=== PATIENT | male | born 1940 | race Two or more races ===

== ENCOUNTER → 2019-11-01 | Outpatient (CLI) | payer OTHER ==
[2019-11-01 08:58] LABS: Basophils # (auto) 0 uL; Basophils % (auto) 0.6 % (0.0-2.0); Eosinophils # (auto) 0.1 uL; Eosinophils % (auto) 2.6 % (0.0-7.0); Hematocrit 42.9 % (41.0-53.0); Hemoglobin 14.4 g/dL (13.5-17.5); Lymphocytes % (auto) 41.5 % (10.0-50.0); Mean Corpuscular Hemoglobin 31.6 pg (28.0-32.0); Mean Corpuscular Hgb Conc. 33.6 g/dL (32.0-36.0); Mean Corpuscular Volume 93.8 fL (80.0-100.0); Monocytes # (auto) 0.4 uL; Neutrophils # (auto) 2.2 uL; Neutrophils % (auto) 47.3 % (37.0-80.0); Platelet Count (auto) 136 10^3/uL (140-450); Red Blood Cells 4.57 10^6/uL (4.5-5.90); Red Cell Distribution Width 13.3 % (11.8-14.3); White Blood Cell 4.7 10^3/uL (4.4-10.8)
[2019-11-01 09:06] LABS: Urine Bacteria NONE SEEN /hpf (None Seen); Urine Blood TRACE /uL (Negative); Urine Specific Gravity 1.018 (1.001-1.035); Urine WBC <1 /hpf (0 - 3)
[2019-11-01 09:14] LABS: Albumin 3.9 g/dL (3.4-5.0); Potassium 4.3 mmol/L (3.5-5.1)
[2019-11-01 09:22] LABS: BUN/Creatinine Ratio 23.3; Bilirubin, Total 0.4 mg/dL (0.2-1.0); Total Protein 7.7 g/dL (6.4-8.2)
[2019-11-01 09:29] LABS: Free T4 (Free Thyroxine) 1.04 ng/dL (0.89-1.76)
[2019-11-01 09:30] LABS: Prostate Specific Antigen 4.26 ng/mL (0.0-4.0)
== END | disposition home or self-care (01) ==
LOC: LAB 08:25
PROVIDERS: ATTEND Internal Medicine
DX: I10 Essential (primary) hypertension (principal); E78.00 Pure hypercholesterolemia, unspecified; N40.0 Benign prostatic hyperplasia without lower urinary tract symptoms
CPT/HCPCS: 36415; 80053; 80061; 81001; 84153; 84154; 84439; 84443; 85025; 85652

== ENCOUNTER → 2021-01-14 | Outpatient (CLI) | payer OTHER ==
[2021-01-14 07:45] LABS: Basophils # (auto) 0 10 ^3/uL (0-0.2); Basophils % (auto) 0.5 % (0.0-2.0); Eosinophils # (auto) 0.1 10 ^3/uL (0-0.8); Eosinophils % (auto) 2.5 % (0.0-7.0); Hematocrit 42.3 % (41.0-53.0); Hemoglobin 14.3 g/dL (13.5-17.5); Lymphocytes # (auto) 2.4 10 ^3/uL (0.4-5.4); Lymphocytes % (auto) 41.3 % (10.0-50.0); Mean Corpuscular Hemoglobin 31.2 pg (28.0-32.0); Mean Corpuscular Hgb Conc. 33.8 g/dL (32.0-36.0); Mean Corpuscular Volume 92.2 fL (80.0-100.0); Monocytes # (auto) 0.5 10 ^3/uL (0-1.3); Monocytes % (auto) 8.5 % (0.0-12.0); Neutrophils # (auto) 2.8 10 ^3/uL (1.6-8.6); Neutrophils % (auto) 47.2 % (37.0-80.0); Nucleated Red Blood Cells % 0.2 %; Platelet Count (auto) 150 10^3/uL (140-450); Red Blood Cells 4.58 10^6/uL (4.5-5.90); Red Cell Distribution Width 13.8 % (11.8-14.3); White Blood Cell 5.9 10^3/uL (4.4-10.8)
[2021-01-14 07:53] LABS: Urine Bacteria NONE SEEN /hpf (None Seen); Urine Blood 1+ /uL (Negative); Urine Mucus FEW (None Seen); Urine WBC 1 /hpf (0 - 3)
[2021-01-14 08:16] LABS: Albumin 3.7 g/dL (3.4-5.0); Calcium 8.6 mg/dL (8.5-10.1); Potassium 3.9 mmol/L (3.5-5.1)
[2021-01-14 08:22] LABS: BUN/Creatinine Ratio 28.2; Bilirubin, Total 0.5 mg/dL (0.2-1.0); Total Protein 7.5 g/dL (6.4-8.2)
[2021-01-14 08:43] LABS: Free T4 (Free Thyroxine) 1.11 ng/dL (0.89-1.76)
[2021-01-14 08:44] LABS: Prostate Specific Antigen 3.97 ng/mL (0.0-4.0)
== END | disposition home or self-care (01) ==
LOC: LAB 07:14
PROVIDERS: ATTEND Internal Medicine
DX: D69.3 Immune thrombocytopenic purpura (principal); R53.1 Weakness; I10 Essential (primary) hypertension
CPT/HCPCS: 36415; 80053; 80061; 81001; 82607; 83615; 84153; 84439; 84443; 85025; 85652

== ENCOUNTER → 2021-05-27 | Outpatient (CLI) | payer OTHER ==
[2021-05-27 11:47] LABS: Urine Bacteria NONE SEEN /hpf (None Seen); Urine Blood TRACE /uL (Negative); Urine Mucus FEW (None Seen); Urine Specific Gravity 1.021 (1.001-1.035); Urine WBC <1 /hpf (0 - 3)
[2021-05-27 11:57] LABS: Basophils # (auto) 0 10 ^3/uL (0-0.2); Basophils % (auto) 0.8 % (0.0-2.0); Eosinophils # (auto) 0.1 10 ^3/uL (0-0.8); Eosinophils % (auto) 2.7 % (0.0-7.0); Hematocrit 40.9 % (41.0-53.0); Hemoglobin 13.6 g/dL (13.5-17.5); Lymphocytes # (auto) 1.9 10 ^3/uL (0.4-5.4); Lymphocytes % (auto) 36.5 % (10.0-50.0); Mean Corpuscular Hemoglobin 31.3 pg (28.0-32.0); Mean Corpuscular Hgb Conc. 33.4 g/dL (32.0-36.0); Mean Corpuscular Volume 93.8 fL (80.0-100.0); Monocytes # (auto) 0.6 10 ^3/uL (0-1.3); Monocytes % (auto) 10.7 % (0.0-12.0); Neutrophils # (auto) 2.6 10 ^3/uL (1.6-8.6); Neutrophils % (auto) 49.3 % (37.0-80.0); Red Blood Cells 4.36 10^6/uL (4.5-5.90); Red Cell Distribution Width 13.2 % (11.8-14.3); White Blood Cell 5.2 10^3/uL (4.4-10.8)
[2021-05-27 12:34] LABS: Albumin 3.6 g/dL (3.4-5.0); Calcium 8.5 mg/dL (8.5-10.1); Potassium 4.1 mmol/L (3.5-5.1)
[2021-05-27 12:38] LABS: BUN/Creatinine Ratio 23.8; Bilirubin, Total 0.4 mg/dL (0.2-1.0); Total Protein 7.3 g/dL (6.4-8.2)
== END | disposition home or self-care (01) ==
LOC: LAB 11:27
PROVIDERS: ATTEND Internal Medicine
DX: I10 Essential (primary) hypertension (principal); L03.114 Cellulitis of left upper limb
CPT/HCPCS: 36415; 80053; 81001; 85025; 85652

== ENCOUNTER → 2022-01-17 | Outpatient (CLI) | payer OTHER ==
[2022-01-17 08:37] LABS: Basophils # (auto) 0.1 10 ^3/uL (0-0.2); Basophils % (auto) 0.7 % (0.0-2.0); Eosinophils # (auto) 0.1 10 ^3/uL (0-0.8); Eosinophils % (auto) 1.6 % (0.0-7.0); Hematocrit 39.7 % (41.0-53.0); Hemoglobin 13.7 g/dL (13.5-17.5); Lymphocytes # (auto) 2.7 10 ^3/uL (0.4-5.4); Lymphocytes % (auto) 35.6 % (10.0-50.0); Mean Corpuscular Hemoglobin 32.2 pg (28.0-32.0); Mean Corpuscular Hgb Conc. 34.5 g/dL (32.0-36.0); Mean Corpuscular Volume 93.3 fL (80.0-100.0); Monocytes # (auto) 0.6 10 ^3/uL (0-1.3); Monocytes % (auto) 7.7 % (0.0-12.0); Neutrophils # (auto) 4.2 10 ^3/uL (1.6-8.6); Neutrophils % (auto) 54.4 % (37.0-80.0); Nucleated Red Blood Cells % 0.1 %; Red Blood Cells 4.25 10^6/uL (4.5-5.90); Red Cell Distribution Width 14.6 % (11.8-14.3); White Blood Cell 7.7 10^3/uL (4.4-10.8)
[2022-01-17 08:59] LABS: Potassium 3.8 mmol/L (3.5-5.1)
[2022-01-17 09:06] LABS: Albumin 3.2 g/dL (3.4-5.0); BUN/Creatinine Ratio 29.5; Bilirubin, Total 0.4 mg/dL (0.2-1.0); Calcium 8.4 mg/dL (8.5-10.1); Total Protein 6.7 g/dL (6.4-8.2)
== END | disposition home or self-care (01) ==
LOC: LAB 08:22
PROVIDERS: ATTEND Internal Medicine
DX: E78.5 Hyperlipidemia, unspecified (principal); I10 Essential (primary) hypertension
CPT/HCPCS: 36415; 80053; 85025

== ENCOUNTER → 2022-05-05 | Outpatient (CLI) | payer OTHER | END | disposition home or self-care (01) | LOC: LAB 12:09 | PROVIDERS: ATTEND Urology | DX: R35.1 Nocturia (principal) | CPT/HCPCS: 84153 ==

== ENCOUNTER → 2023-01-17 | Outpatient (CLI) | payer OTHER ==
[2023-01-17 12:40] LABS: Urine Bacteria NONE SEEN /hpf (None Seen); Urine Blood TRACE /uL (Negative); Urine Mucus FEW (None Seen); Urine Specific Gravity 1.032 (1.001-1.035); Urine WBC 164 /hpf (0 - 3); Urine WBC Clumps PRESENT /hpf (None Seen)
== END | disposition home or self-care (01) ==
LOC: LAB 12:15
PROVIDERS: ATTEND Urology
DX: N39.0 Urinary tract infection, site not specified (principal)
CPT/HCPCS: 81001; 87086

== ENCOUNTER → 2023-03-24 | Outpatient (CLI) | payer OTHER ==
[2023-03-24 08:58] LABS: Basophils # (auto) 0 10 ^3/uL (0-0.2); Basophils % (auto) 0.4 % (0.0-2.0); Eosinophils # (auto) 0.2 10 ^3/uL (0-0.8); Eosinophils % (auto) 3.8 % (0.0-7.0); Hematocrit 42.1 % (41.0-53.0); Lymphocytes # (auto) 2.3 10 ^3/uL (0.4-5.4); Mean Corpuscular Hemoglobin 30.8 pg (28.0-32.0); Mean Corpuscular Hgb Conc. 33.1 g/dL (32.0-36.0); Monocytes # (auto) 0.5 10 ^3/uL (0-1.3); Monocytes % (auto) 8.8 % (0.0-12.0); Neutrophils # (auto) 2.8 10 ^3/uL (1.6-8.6); Red Blood Cells 4.53 10^6/uL (4.5-5.90); Red Cell Distribution Width 13.5 % (11.8-14.3); White Blood Cell 5.9 10^3/uL (4.4-10.8)
[2023-03-24 09:08] LABS: Urine Bacteria NONE SEEN /hpf (None Seen); Urine Blood 2+ /uL (Negative); Urine Hyaline Cast FEW /lpf (0 - 2); Urine Mucus MODERATE (None Seen); Urine WBC <1 /hpf (0 - 3)
[2023-03-24 09:23] LABS: Free T4 (Free Thyroxine) 1.05 ng/dL (0.89-1.76)
[2023-03-24 09:24] LABS: Prostate Specific Antigen 1.44 ng/mL (0.0-4.0)
[2023-03-24 09:35] LABS: Potassium 4.1 mmol/L (3.5-5.1)
[2023-03-24 09:50] LABS: Albumin 3.6 g/dL (3.4-5.0); BUN/Creatinine Ratio 25.6 (10.0-20.0); Bilirubin, Total 0.7 mg/dL (0.2-1.0); Calcium 8.9 mg/dL (8.5-10.1); Total Protein 7.4 g/dL (6.4-8.2)
== END | disposition home or self-care (01) ==
LOC: LAB 08:35
PROVIDERS: ATTEND Internal Medicine
DX: I10 Essential (primary) hypertension (principal); N40.1 Benign prostatic hyperplasia with lower urinary tract symptoms
CPT/HCPCS: 36415; 80053; 80061; 81001; 84153; 84439; 84443; 85025; 85652

== ENCOUNTER → 2023-07-03 | Outpatient (CLI) | payer OTHER ==
[2023-07-03 08:47] LABS: Urine WBC None Seen /hpf (0 - 3)
[2023-07-03 09:00] LABS: Urine Bacteria NONE SEEN /hpf (None Seen); Urine Blood TRACE /uL (Negative); Urine Clarity Clear (Clear); Urine Protein, UAD Negative (Negative); Urine Specific Gravity 1.019 (1.001-1.035); Urine Urobilinogen Normal (Negative)
[2023-07-03 09:03] LABS: Urine Color Straw (Yellow)
== END | disposition home or self-care (01) ==
LOC: LAB 08:36
PROVIDERS: ATTEND Urology
DX: R35.1 Nocturia (principal); R31.9 Hematuria, unspecified; N40.0 Benign prostatic hyperplasia without lower urinary tract symptoms
CPT/HCPCS: 81001; 84153; 87086

== ENCOUNTER → 2024-08-21 | Outpatient (CLI) | payer OTHER ==
[2024-08-21 07:56] LABS: Alanine Aminotransferase 20 U/L (7-40); Alkaline Phosphatase 96 U/L (46-116); Anion Gap 6 (5-15); BUN/Creatinine Ratio 20.7 (10.0-20.0); Blood Urea Nitrogen 19 mg/dL (9-23); Calcium 9.6 mg/dL (8.7-10.4); Carbon Dioxide 28 mmol/L (20-31); Magnesium 2.3 mg/dL (1.6-2.6); Potassium 4.5 mmol/L (3.5-5.1); Sodium 143 mmol/L (136-145)
[2024-08-21 07:57] LABS: Albumin 4.3 g/dL (3.2-4.8); Aspartate Aminotransferase 26 U/L (13-40); Basophils # (auto) 0 10 ^3/uL (0-0.2); Basophils % (auto) 0.5 % (0.0-2.0); Bilirubin, Total 0.5 mg/dL (0.2-1.0); Eosinophils # (auto) 0.2 10 ^3/uL (0-0.8); Eosinophils % (auto) 3.7 % (0.0-7.0); Hematocrit 43.3 % (41.0-53.0); Hemoglobin 14.6 g/dL (13.5-17.5); Lymphocytes # (auto) 3.1 10 ^3/uL (0.4-5.4); Lymphocytes % (auto) 46.5 % (10.0-50.0); Mean Corpuscular Hemoglobin 31.3 pg (28.0-32.0); Mean Corpuscular Hgb Conc. 33.7 g/dL (32.0-36.0); Mean Corpuscular Volume 92.9 fL (80.0-100.0); Monocytes # (auto) 0.6 10 ^3/uL (0-1.3); Monocytes % (auto) 8.4 % (0.0-12.0); Neutrophils # (auto) 2.7 10 ^3/uL (1.6-8.6); Neutrophils % (auto) 40.9 % (37.0-80.0); Nucleated Red Blood Cells % 0.2 %; Platelet Count (auto) 160 10^3/uL (140-450); Red Blood Cells 4.67 10^6/uL (4.5-5.90); Red Cell Distribution Width 13.6 % (11.8-14.3); White Blood Cell 6.7 10^3/uL (4.4-10.8)
[2024-08-21 07:58] LABS: Total Protein 7.1 g/dL (5.7-8.2)
[2024-08-21 08:01] LABS: Chloride 109 mmol/L (98-107); Glucose 107 mg/dL (74-106)
== END | disposition home or self-care (01) ==
LOC: LAB 07:14
PROVIDERS: ATTEND Internal Medicine
DX: I10 Essential (primary) hypertension (principal)
CPT/HCPCS: 36415; 80053; 83735; 85025

== ENCOUNTER 2025-02-20 07:14 | Outpatient (CLI) | payer OTHER ==
[2025-02-20 07:37] LABS: Basophils # (auto) 0.1 10 ^3/uL (0-0.2); Basophils % (auto) 0.5 % (0.0-2.0); Eosinophils # (auto) 0.1 10 ^3/uL (0-0.8); Eosinophils % (auto) 1.2 % (0.0-7.0); Hematocrit 41.8 % (41.0-53.0); Hemoglobin 13.9 g/dL (13.5-17.5); Lymphocytes # (auto) 2.2 10 ^3/uL (0.4-5.4); Lymphocytes % (auto) 18.3 % (10.0-50.0); Mean Corpuscular Hemoglobin 30.4 pg (28.0-32.0); Mean Corpuscular Hgb Conc. 33.2 g/dL (32.0-36.0); Mean Corpuscular Volume 91.4 fL (80.0-100.0); Monocytes # (auto) 0.7 10 ^3/uL (0-1.3); Monocytes % (auto) 5.7 % (0.0-12.0); Neutrophils % (auto) 74.3 % (37.0-80.0); Platelet Count (auto) 188 10^3/uL (140-450); Red Blood Cells 4.57 10^6/uL (4.5-5.90); Red Cell Distribution Width 13.4 % (11.8-14.3); White Blood Cell 12.1 10^3/uL (4.4-10.8)
[2025-02-20 07:41] LABS: Urine Bacteria MOD /hpf (None Seen); Urine Blood 1+ /uL (Negative); Urine Clarity Turbid (Clear); Urine Color Light-Yellow (Yellow); Urine Mucus FEW (None Seen); Urine Protein, UAD TRACE (Negative); Urine Specific Gravity 1.015 (1.001-1.035); Urine Squamous Epithelial Cell FEW /hpf (<5); Urine Urobilinogen Normal (Negative); Urine WBC 384 /HPF (0-3); Urine WBC Clumps PRESENT /hpf (None Seen); Urine pH 5.5 (5.0-9.0)
[2025-02-20 07:56] LABS: Alanine Aminotransferase 26 U/L (7-40); Albumin 4.4 g/dL (3.2-4.8); Alkaline Phosphatase 79 U/L (46-116); Anion Gap 9 (5-15); Aspartate Aminotransferase 25 U/L (<34); BUN/Creatinine Ratio 25.9 (10.0-20.0); Calcium 9.5 mg/dL (8.7-10.4); Carbon Dioxide 25 mmol/L (20-31); Cholesterol 115 mg/dL (< 200); LDL Cholesterol 66 mg/dL (< 100); Potassium 4.2 mmol/L (3.5-5.1); Sodium 143 mmol/L (136-145); Total Protein 7.4 g/dL (5.7-8.2); Triglycerides 117 mg/dL (< 150)
[2025-02-20 08:06] LABS: Bilirubin, Total 0.2 mg/dL (0.2-1.0); Blood Urea Nitrogen 29 mg/dL (9-23); Chloride 109 mmol/L (98-107); Glucose 113 mg/dL (74-106); HDL Cholesterol 29 mg/dL (40-59)
[2025-02-20 08:18] LABS: Erythrocyte Sedimentation Rate 49 mm/hr (0-20)
== END 2025-02-20 17:00 | disposition home or self-care (01) ==
LOC: LAB 07:14
PROVIDERS: ATTEND Internal Medicine
DX: I10 Essential (primary) hypertension (principal)
CPT/HCPCS: 36415; 80053; 80061; 81001; 83880; 84439; 84443; 85025; 85652

== ENCOUNTER → 2025-04-04 | Outpatient (CLI) | payer OTHER ==
[2025-04-04 08:50] LABS: Hematocrit 43.1 % (41.0-53.0); Hemoglobin 14.4 g/dL (13.5-17.5); Mean Corpuscular Hemoglobin 30.6 pg (28.0-32.0); Mean Corpuscular Volume 91.7 fL (80.0-100.0); Nucleated Red Blood Cells % 0.1 %
[2025-04-04 09:40] LABS: Alanine Aminotransferase 23 U/L (7-40); Albumin 4.6 g/dL (3.2-4.8); Alkaline Phosphatase 87 U/L (46-116); Anion Gap 9 (5-15); BUN/Creatinine Ratio 25.7 (10.0-20.0); Calcium 9.8 mg/dL (8.7-10.4); Carbon Dioxide 25 mmol/L (20-31); Chloride 107 mmol/L (98-107); Cholesterol 142 mg/dL (< 200); Potassium 4.4 mmol/L (3.5-5.1); Sodium 141 mmol/L (136-145); Total Protein 7.2 g/dL (5.7-8.2); Triglycerides 86 mg/dL (< 150)
[2025-04-04 09:41] LABS: Bilirubin, Total 0.6 mg/dL (0.2-1.0); HDL Cholesterol 42 mg/dL (40-59)
[2025-04-04 09:42] LABS: Blood Urea Nitrogen 26 mg/dL (9-23); Glucose 106 mg/dL (74-106)
[2025-04-04 10:20] LABS: Free T3 3.52 pg/mL (2.3-4.2)
[2025-04-04 10:21] LABS: Free T4 (Free Thyroxine) 1.18 ng/dL (0.89-1.76)
== END | disposition home or self-care (01) ==
LOC: LAB 08:26
PROVIDERS: ATTEND Internal Medicine
DX: I12.9 Hypertensive chronic kidney disease with stage 1 through stage 4 chronic kidney disease, or unspecified chronic kidney disease (principal); N18.9 Chronic kidney disease, unspecified; E78.5 Hyperlipidemia, unspecified
CPT/HCPCS: 36415; 80053; 80061; 84439; 84443; 84481; 85025

== ENCOUNTER 2025-04-08 08:43 | Outpatient (CLI) | payer OTHER ==
[~2025-04-08] VITALS: Ht 175.3 cm; Wt 78.0 kg
[2025-04-08] MEDS: REGADENOSON 0.4 MG/5 ML SYRG IV ONE ×2 (10:50→10:58)
--- NOTE | 2025-04-09 16:18 | DVHSR ---
APPROVED REPORT Exam: Nuclear Stress Test Indication: cardiac clearance BMI: 0 Medical History Medical History: testicular hydrocele, HTN, DLD, right cervical radiculopathy, HLD Stress Test Details Stress Test: Pharmacologic stress testing performed using 0.4 mg of regadenoson per 5 mL given IV ov er 10 seconds. HR Resting HR: 63 bpmMax Heart Rate (APMHR): 134.831078 bpm Max HR Achieved: 83 bpmTarget HR (85% APMHR): 113.530326 bpm % of APMHR: 61.94 Recovery HR: 66 bpm BP Resting BP: 170/66 mmHg Recovery BP: 131/55 mmHg ECG Resting ECG: Sinus Rhythm Clinical Reason for Termination: Completed protocol Stress ECG Conclusion lvef 64% inferoapical fixed defect no ischemia NM EXAM: Myocardial Perfusion REST/STRESS Imaging Protocol: Rest Tc-99m/Stress Tc-99m 1 day Resting Data Rest SPECT myocardial perfusion imaging was performed in supine position 60 minutes following the int ravenous injection of 10.3 mCi of Tc-99m Sestamibi. Time of rest injection: 09:30 Date: 04/08/2025 Time of rest imagin:30 Date: 04/08/2025 Administration Route: IV Administration Site: Left Arm Pharmacologic Stress Pharmacologic stress test was performed by injecting Regadenoson 0.4 mg IV push followed by the intra venous injection of 32.5 mCi of Tc-99m Sestamibi. Time of stress injection: 10:54 Date: 04/08/2025 Time of stress imagin:54 Date: 04/08/2025 Administration Route: IV Administration Site: Left Arm Gated Stress SPECT was performed 60 minutes after stress injection. The images were gated to evaluate regional wall motion and calculate left ventricular ejection fracti on. Stress only was performed in the Supine position. Nuclear Conclusion Nuclear Findings: negative for ischemia lvef 64% inferoapical fixed defect no ischemia
== END 2025-04-08 17:00 | disposition home or self-care (01) ==
LOC: XYW 08:43
PROVIDERS: ATTEND Internal Medicine
DX: Z01.810 Encounter for preprocedural cardiovascular examination (principal); N43.3 Hydrocele, unspecified; I10 Essential (primary) hypertension; E78.5 Hyperlipidemia, unspecified
CPT/HCPCS: 78452; 93017; A9500; J2785

== ENCOUNTER → 2025-05-06 | Day surgery (SDC) | payer OTHER ==
[2025-05-02 14:50] LABS: Hematocrit 42.4 % (41.0-53.0); Hemoglobin 14.3 g/dL (13.5-17.5); Mean Corpuscular Hemoglobin 30.9 pg (28.0-32.0); Mean Corpuscular Volume 91.6 fL (80.0-100.0); Nucleated Red Blood Cells % 0.1 %; Urine Protein, UAD Negative (Negative)
[2025-05-02 15:00] LABS: INR 0.99 (0.9-1.15); Partial Thromboplastin Time 26.6 SEC (24.5-34.5); Prothrombin Time 10.5 sec (9.3-11.8)
[2025-05-02 15:24] LABS: Alanine Aminotransferase 26 U/L (7-40); Albumin 4.4 g/dL (3.2-4.8); Alkaline Phosphatase 85 U/L (46-116); Anion Gap 7 (5-15); BUN/Creatinine Ratio 22.8 (10.0-20.0); Bilirubin, Total 0.4 mg/dL (0.2-1.0); Blood Urea Nitrogen 23 mg/dL (9-23); Calcium 9.1 mg/dL (8.7-10.4); Carbon Dioxide 27 mmol/L (20-31); Chloride 106 mmol/L (98-107); Glucose 105 mg/dL (74-106); Potassium 4.1 mmol/L (3.5-5.1); Sodium 140 mmol/L (136-145); Total Protein 7.5 g/dL (5.7-8.2)
[~2025-05-06] VITALS: Ht 172.7 cm; Wt 72.0 kg
[~2025-05-06] MED LIST: HYDROmorphone HCL 2 MG/ML VL/or syr IV PRN; MIDAZOLAM HCL 2MG/2ML 2ml VIAL (1mg/ml) IV PRN; MORPHINE SULFATE 4 MG/ML SYR/VIAL IV PRN; ONDANSETRON HCL 4 MG/2 ML VIAL IV PRN; PROPOFOL 10 MG/ML 20 ML IV ONE; fentaNYL CITRATE 100 MCG/2 ML VL ONE; hydrALAZINE HCL 20 MG/ML VL IV PRN
[2025-05-06] MEDS: LIDOCAINE W/ EPINEPHRINE 1% 20ML VIAL ONE (15:00)
[2025-05-06] MEDS: BACITRACIN TOP OINT 1 UD PKG TOP ONE (15:02)
[2025-05-06 15:55] VITALS: PULSE 62; RESP 10; TEMP 97.6; O2SAT 97
--- NOTE | 2025-05-06 16:15 | DVHNC2 ---
Procedure - OPERATIVE REPORT Pre-op. Diagnosis: Hydrocele, Left Spermatocele, Left BPH with Obstruction Post-op. Diagnosis: Same as pre-op diagnosis Operation: Hydrocelectomy, Left Spermatocelectomy, Left Urolift - Prostate Implant Anesthesia: General Indications: Patiadan was seen for left hydrocle and BPH. Patient suffers from obstructive voiding dysfunction. Treatment options were discussed including ongoing therapy with pharmaceutical such as alpha blocking agents (Flomax/UroXatral/Rapaflow), or Prostate shrinking agents (proscar/Avodart); In-office prostate therapies (TUMT/Indigo Laser/TUNA); or Outpatient procedures such as Green light laser photovaporization/Enucleation/TURP) as well urolift. Corresponding advantages and disadvantages were also discussed. Questions were addressed. Indications, risks, complications, alternatives and benefits of Left hydrocelectomy and Urolift procedure were discussed with patient. All questions were encouraged and answered. The patient was aware of specific risks/complications including but not limited to infection, bleeding, hematoma, wound dehiscence, persistent pain requiring additional managements and recurrence of conditions. He was also aware of alternatives of this procedure including conservative management, other forms of management such as drainage. He consented to proceed. Details of Procedure: Patient was taken to Operating suite and given appropriate anesthesia. Preoperative antibiotic was given . Timeout was performed and deemed to be correct. After shaving, prepping and draping the patient in the lithotomy position, a midline vertical scrotal incision was made with the scalpel. Subsequent tissues were taken down with Bovie to the level of tunica vaginalis. Hydrocele sac on left was encountered, carefully dissected and delivered through the incision. The sac was opened and resected to the edge. Specimens were sent to pathology. Patient also had a multifocal spermatocele. The spermatocele was carefully dissected until it's insertion site to the epididymis was identified. At this point it was resected without getting into the spermatocele and was sent for pathology. Hemostasis was established with the electrocautery. The edges of the sac was oversewn using 3-0 Vicryl. The testicle was placed back in the scrotum in normal anatomic position. The dartos layer was closed with 3-0 Vicryl in a continuous fashion. The skin was closed with 3-0 Chromic horizontal mattress interrupted sutures. 1% Lidocaine mixed with 0.25% Marcaine was injected into incision site. Bacitracin was applied and fluffs with scrotal support was placed. All counts were correct. The 20 F access sheath was introduced into the bladder under direct vision. Bladder was emptied and the Urolift device was introduced. Five implants were permanently placed at the 10 a& 2 O'clock positions near the bladder neck and apical tissue to lift the kissing lateral lobes out of the way and to create a channel in the prostatic urethra and the urethral bladder neck opening. The implants were delivered through a needle that comes out of the Urolift delivery device and into the prostate. Patient tolerated the procedure well. Due to bleeding, [address]f [address] Brandt was placed. He was awaken and taken to RR in stable condition. All instrument counts were correct at the end of the procedure. Specimens: Pathology: Left Hydrocele sac, Left Spermatocele Complications: None Findings: EBL: 100 ml Notes: DISPOSITION: RTC 2 weeks to check pathology results and exam. Diagnosis: Visit Code: Procedure Codes: 99280 CYSTOURETHRO W/IMPLANT. 18850 CYSTOURETHRO W/ADDL IMPLANT. Units: 4.00. ANTONI PETERSEN MD May 06, 2025 16:15
--- NOTE | 2025-05-06 16:16 | DVHDS2 ---
New Physician D'charge PN Admitting Diagnosis Admitting Diagnosis BPH Left hydrocele Discharge Diagnosis Same Operations or Procedures Left hydrocelectomy Left spermatocelectomy UroLift prostate implantation Reason(s) For Hospitalization Surgery Treatment Plan Discharge Condition of Discharge Good Disposition Home Discharge Instructions Diet: Regular Activity: Light activity Activity comment: Brandt catheter management Medications: Given Follow Up Care Follow Up/Referral: Brandt removal on postop day 2. Discharge Statement: "Patient was advised to return to the ER or call 911 if any headaches, dizziness, shortness of breath, chest pain, abdominal pain, bleeding, fevers, or worsening of medical condition. Patient was counseled about treatment plan, medications, possible side effects, patientverbalized understanding. All questions were answered to the best of my ability. This discharge took greater then 30 minutes in planning, reviewing documentation, counseling the patient, and discussing with other team members." ANTONI PETERSEN MD May 06, 2025 16:16
[2025-05-06 16:40] VITALS: PULSE 75; RESP 13; O2SAT 95
[2025-05-06 17:25] VITALS: PULSE 75; RESP 13; O2SAT 95
[2025-05-06 17:30] VITALS: BP 136/72; PULSE 91; RESP 95; O2SAT 12
== END | disposition home or self-care (01) ==
LOC: SUR 09:27
PROVIDERS: ATTEND Urology
DX: N43.3 Hydrocele, unspecified (principal); N43.41 Spermatocele of epididymis, single; N40.1 Benign prostatic hyperplasia with lower urinary tract symptoms; N13.8 Other obstructive and reflux uropathy; I10 Essential (primary) hypertension; Z79.899 Other long term (current) drug therapy; Z98.890 Other specified postprocedural states
CPT/HCPCS: 36415; 52441; 52442; 54840; 55040; 80053; 81001; 85025; 85610; 85730; 87086; 88302; A4315; A4344; C1769; J1100; J1171; J2704; J3010; J7030; L8699